=== PATIENT | female | born 1950 | race Hispanic/Latino ===

== ENCOUNTER 2017-11-18 07:55 | Outpatient (CLI) | payer MEDICARE ==
--- NOTE | 2017-11-19 08:24 | Mammography Report ---
BILATERAL DIGITAL SCREENING MAMMOGRAM with CAD: 11/18/17 07:55:00 CLINICAL: Routine screening. COMPARISON:10/30/16 FINDINGS: The breasts are heterogeneously dense, which may obscure small masses. No mass, architectural distortion or suspicious calcifications. IMPRESSION: No mammographic evidence of malignancy. BI-RADS CATEGORY: 1 - - Negative RECOMMENDATION: Routine mammographic screening in one year. COMMENT: Patient follow-up letters are generated by our [employer] application.
== END 2017-11-18 07:56 | disposition home or self-care (01) ==
LOC: MAMMO 07:55
PROVIDERS: ATTEND Obstetrics & Gynecology
DX: Z12.31 Encounter for screening mammogram for malignant neoplasm of breast (principal); I12.0 Hypertensive chronic kidney disease with stage 5 chronic kidney disease or end stage renal disease; N18.6 End stage renal disease; E11.22 Type 2 diabetes mellitus with diabetic chronic kidney disease; I48.91 Unspecified atrial fibrillation; I25.10 Atherosclerotic heart disease of native coronary artery without angina pectoris
CPT/HCPCS: 77067; G0202

== ENCOUNTER 2017-12-23 00:31 | Emergency (ER) | payer MEDICARE ==
[2017-12-23] MEDS ORDERED: ADRENALIN ONE (00:40)
--- NOTE | 2017-12-23 01:18 | Emergency Department Report ---
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 EMS received 23:55 that patient was having bleeding from her dialysis site. Patient did receive her dialysis today. Patient became unresponsive just prior to their arrival at 12:04 AM. Patient was found to be in PEA. Patient was intubated and right leg IO was placed. Patient received 2 rounds of epinephrine prior to arrival for PEA rhythm. Patient received 1 defibrillator shcok for V. fib rhythm is prior to arrival to the hospital. They report at least a liter of blood at the scene and they placed a pressure bandage to the left forearm AV access site. Patient presents with fixed and dilated pupils and PEA on a monitor without any spontaneous respirations. - Related Data Home Medications Medication Instructions Recorded Confirmed Last Taken Atorvastatin [Lipitor] 40 mg PO DAILY 03/01/16 11/16/16 11/11/16 Cinacalcet [Sensipar] 30 mg PO QDAY 03/01/16 11/16/16 11/11/16 Omeprazole [PriLOSEC] 20 mg PO QDAY 03/01/16 11/16/16 11/11/16 Sevelamer Carbonate [Renvela] 800 mg PO BIDWM 03/01/16 11/16/16 11/11/16 Valsartan [Diovan] 160 mg PO BID 03/01/16 11/16/16 11/11/16 cloNIDine [Catapres] 0.2 mg PO BID 03/01/16 11/16/16 11/15/16 Vit B Complx C/Folic Acid/Zinc 0.8 mg PO DAILY 06/04/16 11/16/16 11/11/16 [Dialyvite 800-Zinc 50 mg Tab] Previous Rx's Medication Instructions Recorded Last Taken Type Minoxidil [Loniten] 5 mg PO BID #60 tablet 06/06/16 11/11/16 Rx levETIRAcetam [Keppra TAB] 500 mg PO BID #60 tablet 07/02/16 11/11/16 Rx Metoprolol [Lopressor TAB] 100 mg PO BID #60 tablet 09/19/16 11/15/16 Rx Warfarin [Coumadin] 3 mg PO DAILY@1700 #14 tablet 09/19/16 11/11/16 Rx Diltiazem Cd [Cardizem CD] 120 mg PO QDAY #30 cap 09/21/16 11/15/16 Rx Allergies Allergy/AdvReac Type Severity Reaction Status Date / Time PAZ Inhibitors Allergy Itching Verified 02/29/16 23:03 ED Review of Systems ROS: Stated complaint: CARDIAC ARREST Other details as noted in HPI Comment: Unobtainable due to pts medical conditions ED Past Medical Hx - Past Medical History Previous Medical History?: Yes Hx Hypertension: Yes Hx Heart Attack/AMI: No (not sure, stent in March 2016 RCA) Hx Diabetes: Yes Hx GERD: Yes Hx Liver Disease: No Hx Renal Disease: Yes Hx Sickle Cell Disease: No Hx Arthritis: Yes Hx Seizures: Yes (2016) Hx Asthma: No Hx COPD: No Hx HIV: No Additional medical history: dialysis M-W-F - Surgical History Past Surgical History?: Yes Hx Coronary Stent: Yes (x1) Additional Surgical History: cataract removed 01/28/2016 left upper extremity fistula. stent - Social History Smoking Status: Never Smoker - Medications Home Medications: Home Medications Medication Instructions Recorded Confirmed Last Taken Type Atorvastatin [Lipitor] 40 mg PO DAILY 03/01/16 11/16/16 11/11/16 History Cinacalcet [Sensipar] 30 mg PO QDAY 03/01/16 11/16/16 11/11/16 History Omeprazole [PriLOSEC] 20 mg PO QDAY 03/01/16 11/16/16 11/11/16 History Sevelamer Carbonate [Renvela] 800 mg PO BIDWM 03/01/16 11/16/16 11/11/16 History Valsartan [Diovan] 160 mg PO BID 03/01/16 11/16/16 11/11/16 History cloNIDine [Catapres] 0.2 mg PO BID 03/01/16 11/16/16 11/15/16 History Vit B Complx C/Folic Acid/Zinc 0.8 mg PO DAILY 06/04/16 11/16/16 11/11/16 History [Dialyvite 800-Zinc 50 mg Tab] Minoxidil [Loniten] 5 mg PO BID #60 tablet 06/06/16 11/16/16 11/11/16 Rx levETIRAcetam [Keppra TAB] 500 mg PO BID #60 tablet 07/02/16 11/16/16 11/11/16 Rx Metoprolol [Lopressor TAB] 100 mg PO BID #60 tablet 09/19/16 11/16/16 11/15/16 Rx Warfarin [Coumadin] 3 mg PO DAILY@1700 #14 tablet 09/19/16 11/16/16 11/11/16 Rx Diltiazem Cd [Cardizem CD] 120 mg PO QDAY #30 cap 09/21/16 11/16/16 11/15/16 Rx ED Physical Exam - General Limitations: Other - Other Other exam information: General: Unresponsive Head exam: Atraumatic, normocephalic Eyes exam: Pupils 60 down ENT: Orally intubated Neck exam: Normal inspection Respiratory exam: No spontaneous respirations, minimal breath sounds and lungs, positive breath sounds upper epigastric Cardiovascular: No palpable rhythm, PEA on a monitor initiated Abdomen: Soft, positive breath sounds over the epigastrium with bagging Extremity: No spontaneous movement, right leg IO. Left forearm pressure dressing Back: Normal Inspection Neurologic: GCS equals 3, no spontaneous movement Psychiatric: Unresponsive Skin: Warm, dry, intact ED Course - Reevaluation(s) Reevaluation #1: 12/23/17 01:18 Patient remained a PEA upon arrival. Chest compressions continued and a total 4 epinephrines provided with deterioration of rhythm to asystole. ET tube a suspected to be in the stomach giving breath sounds over the epigastrium and stomach contents coming from the ET tube. ET tube was removed. Patient was reintubated with color change and lack of breath sounds over the epigastrium. Despite resuscitation efforts patient's remained in asystole. Time of 00: 40 Patient's daughter and other family member informed - Intubation Time Out Performed: Yes Sedative: none Laryngoscope: Karine Size: 3 ET Tube Size: 7.5 Tube Secured Depth (cm): 23 Tube Secured Location: lips Tube Placement Confirmation: visualized tube passing t, equal breath sounds bilat, no breath sounds over epi, confirmation by capnometr Patient Tolerated Procedure: well Intubation Complications: none Additional Comments: Suspected right sided intubation given breath sounds greater on the right than left. Instructed to pullback tube to 21 cm ED Medical Decision Making - Medical Decision Making see ED course Deteriorated to asystole despite resuscitation efforts Suspect acute blood loss secondary to bleeding AV dialysis access Family informed of the patient's . - Differential Diagnosis acute hemorrhage, [place], arrhythmia, PE, CVA Critical Care Time: Yes Critical care time in (mins) excluding proc time.: 35 Critical care attestation.: If time is entered above; I have spent that time in minutes in the direct care of this critically ill patient, excluding procedure time. ED Disposition Clinical Impression: Cardiopulmonary arrest, Hemorrhage from arteriovenous dialysis graft Disposition: DC-20 Is pt being admited?: No Condition: Stable Time of Disposition: 01:22
== END 2017-12-23 07:33 ==
LOC: ED 00:31
DX: I46.9 Cardiac arrest, cause unspecified (principal); T82.838A Hemorrhage due to vascular prosthetic devices, implants and grafts, initial encounter; Y84.1 Kidney dialysis as the cause of abnormal reaction of the patient, or of later complication, without mention of misadventure at the time of the procedure; E11.22 Type 2 diabetes mellitus with diabetic chronic kidney disease; I12.0 Hypertensive chronic kidney disease with stage 5 chronic kidney disease or end stage renal disease; N18.6 End stage renal disease; Z99.2 Dependence on renal dialysis; K21.9 Gastro-esophageal reflux disease without esophagitis
CPT/HCPCS: 31500; 82962; 92950; 99291; J0171